=== PATIENT | female | born 1965 | race Asian ===

== ENCOUNTER 2022-03-17 16:21 | Emergency (ER) | payer OTHER ==
[~2022-03-17] VITALS: Ht 165.1 cm; Wt 61.8 kg
[2022-03-17] MEDS ORDERED: ACET-2247 PO (17:48)
[2022-03-17 18:04] LABS: COVID AG,FIA SOURCE NASAL SWAB
[2022-03-17 18:48] LABS: INFLUENZA TYPE A NEGATIVE FOR TYPE A (NEGATIVE); INFLUENZA TYPE B NEGATIVE FOR TYPE B (NEGATIVE)
[2022-03-17] MEDS ORDERED: GuaiFENesin/D-METHORPHAN [SUGAR-FREE] 200-20MG/10 ML SYRUP UDCUP PO ONE (21:30)
[2022-03-17] MEDS ORDERED: ACETAMINOPHEN 500 MG TABLET PO ONE (21:30)
[2022-03-17] MEDS ORDERED: IBUPROFEN 600 MG TABLET PO ONE (21:30)
[2022-03-17] MEDS ORDERED: BENZONATATE 100 MG CAPSULE PO ONE (21:30)
[2022-03-17 22:00] LABS: BASOPHILS % (AUTO) 0.2 % (0.0-2.0); EOSINOPHILS % (AUTO) 0.1 % (1.0-6.0); HEMATOCRIT 40.4 % (36-46); HEMOGLOBIN 13.6 g/dL (12.0-16.0); LYMPHOCYTES # (AUTO) 0.8 K/uL (1.0-4.8); LYMPHOCYTES % (AUTO) 13.9 % (22.0-44.0); MEAN CORPUSCULAR HEMOGLOBIN 30.4 pg (26.0-34.0); MEAN CORPUSCULAR HGB CONC 33.7 G/dL (31.0-37.0); MEAN CORPUSCULAR VOLUME 90 fL (80-100); MONOCYTES # (AUTO) 0.4 K/uL (0.1-1.0); MONOCYTES % (AUTO) 8.1 % (2.0-9.0); NEUTROPHILS # (AUTO) 4.2 K/uL (1.8-7.7); NEUTROPHILS % (AUTO) 77.7 % (40.0-70.0); PLATELET COUNT (AUTO) 267 K/uL (150-450); RED BLOOD CELL COUNT(AUTO) 4.48 MIL/uL (4.00-5.20); RED CELL DISTRIBUTION WIDTH 12.7 % (11.5-14.5)
[2022-03-17] MEDS ORDERED: IBUP-1554 PO (22:05)
[2022-03-17] MEDS ORDERED: ACET-2080 PO (22:05)
[2022-03-17] MEDS ORDERED: NIRM1TAB PO (22:05)
[2022-03-17] MEDS ORDERED: GUAIFDM PO (22:05)
[2022-03-17 22:25] LABS: ALANINE AMINOTRANSFERASE 27 U/L (12-78); ALBUMIN 4.3 g/dL (3.4-5.0); ALKALINE PHOSPHATASE 61 U/L (46-116); ANION GAP 9 mmol/L (8-16); ASPARTATE AMINOTRANSFERASE 24 U/L (15-37); BILIRUBIN,TOTAL 0.3 mg/dL (0.1-1.0); CALCIUM, TOTAL 8.7 mg/dL (8.8-10.5); CARBON DIOXIDE 24 mmol/L (22-29); CHLORIDE 90 mmol/L (98-107); CREATININE 0.57 mg/dL (0.60-1.30); GLUCOSE,RANDOM 131 mg/dL (70-110); POTASSIUM 3.8 mmol/L (3.5-5.1); TOTAL PROTEIN, SERUM 8.3 g/dL (6.4-8.2); UREA NITROGEN, BLOOD 7 mg/dL (7-18)
[2022-03-17 22:26] LABS: GLOMERULAR FILTR. RATE CALC > 60 mL/min (>60)
[2022-03-17 22:33] LABS: SODIUM SERUM 123 mmol/L (136-145)
[2022-03-17] MEDS ORDERED: SODIUM CHLORIDE 0.9% 1,000 ML IV ONE (22:45)
[2022-03-17] MEDS ORDERED: SODIUM CHLORIDE 1 GM TABLET PO ONE (22:45)
[2022-03-18 02:34] LABS: POTASSIUM 3.7 mmol/L (3.5-5.1)
[2022-03-18 03:56] VITALS: BP 130/62
== END 2022-03-18 05:30 | disposition home or self-care (01) ==
LOC: EMS 16:37
DX: U07.1 COVID-19 (principal); R07.89 Other chest pain; J06.9 Acute upper respiratory infection, unspecified; R42 Dizziness and giddiness; E87.1 Hypo-osmolality and hyponatremia
CPT/HCPCS: 71045; 80051; 80053; 84484; 85025; 87804; 93005; 99285; 36415-L1; 36415-TC